=== PATIENT | female | born 1975 | race Caucasian/White ===

== ENCOUNTER → 2018-11-19 | Outpatient (CLI) | payer BC | LOC: EMCIMAGING 09:49 | PROVIDERS: ATTEND Nurse Practitioner | DX: K86.2 Cyst of pancreas (principal); I72.8 Aneurysm of other specified arteries; D35.01 Benign neoplasm of right adrenal gland; Z90.49 Acquired absence of other specified parts of digestive tract | CPT/HCPCS: 71250-PN; 74183-PN ==